=== PATIENT | female | born 1980 ===

== ENCOUNTER 2017-08-15 19:23 | Emergency (ER) | payer SELFPAY ==
[2017-08-15 19:48] VITALS: RESP 18
--- NOTE | 2017-08-15 20:01 | ED PDOC ---
Arrival/HPI - General Chief Complaint: Abdominal Pain Time Seen by Provider: 08/15/17 19:40 Historian: Patient - History of Present Illness Narrative History of Present Illness (Text): 08/15/17 19:56 A 37 year old female, with through , presents to the emergency department complaining of right upper abdominal discomfort for 2-3 hours prior to arrival. Patient is unsure how far along she in her but believes it is approximately 4 months. Patient reports she has been receiving care in a clinic. Patient denies any trauma, fever, chills, nausea, vomiting, diarrhea, urinary symptoms, vaginal discharge, back pain, chest pain, shortness of breath or any other complaints. 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) Symptom Course: Unchanged Context: Home Past Medical History - Provider Review Nursing Documentation Reviewed: Yes - Infectious Disease Hx of Infectious Diseases: None - Cardiac Hx Cardiac Disorders: No - Pulmonary Hx Respiratory Disorders: No - Neurological Hx Neurological Disorder: No - HEENT Hx HEENT Disorder: No - Renal Hx Renal Disorder: No - Endocrine/Metabolic Hx Endocrine Disorders: No - Hematological/Oncological Hx Blood Disorders: No - Integumentary Hx Dermatological Disorder: No - Musculoskeletal/Rheumatological Hx Musculoskeletal Disorders: No - Gastrointestinal Hx Gastrointestinal Disorders: No - Genitourinary/Gynecological Hx Genitourinary Disorders: No - Psychiatric Hx Psychophysiologic Disorder: No Hx Substance Use: No - Surgical History Hx Section: Yes - Anesthesia Hx Anesthesia: Yes Hx Anesthesia Reactions: No Family/Social History - Physician Review Nursing Documentation Reviewed: Yes Family/Social History: No Known Family HX Smoking Status: Never Smoked Hx Alcohol Use: No Hx Substance Use: No Allergies/Home Meds Allergies/Adverse Reactions: Allergies No Known Allergies Allergy (Verified 08/15/17 19:35) Home Medications: Home Meds Medication Instructions Recorded Confirmed Vit No.126/Iron/Folic 1 tab PO DAILY 08/15/17 08/15/17 [Classic Tablet] Review of Systems - Physician Review All systems were reviewed & negative as marked: Yes - Review of Systems Constitutional: absent: Fevers, Night Sweats Respiratory: absent: SOB Cardiovascular: absent: Chest Pain Gastrointestinal: Abdominal Pain (Right upper abdomen). absent: Diarrhea, Nausea, Vomiting Genitourinary Female: absent: Dysuria, Frequency, Hematuria, Vaginal Discharge Musculoskeletal: absent: Back Pain Physical Exam Vital Signs Reviewed: Yes Vital Signs Temp Pulse Resp BP Pulse Ox 08/15/17 19:36 98.9 F 112 H 18 134/64 99 Temperature: Afebrile Blood Pressure: Normal Pulse: Tachycardic Respiratory Rate: Normal Appearance: Positive for: Well-Appearing, Non-Toxic, Comfortable Pain Distress: None Mental Status: Positive for: Alert and Oriented X 3 - Systems Exam Head: Present: Atraumatic, Normocephalic Pupils: Present: PERRL Extroacular Muscles: Present: EOMI Conjunctiva: Present: Normal Mouth: Present: Moist Mucous Membranes Neck: Present: Normal Range of Motion Respiratory/Chest: Present: Clear to Auscultation, Good Air Exchange. No: Respiratory Distress, Accessory Muscle Use Cardiovascular: Present: Regular Rate and Rhythm, Normal S1, S2. No: Murmurs Abdomen: Present: Distention (distension consistent with gestational age), Normal Bowel Sounds. No: Tenderness, Peritoneal Signs Back: Present: Normal Inspection. No: CVA Tenderness Upper Extremity: Present: Normal Inspection, NORMAL PULSES. No: Cyanosis, Edema Lower Extremity: Present: Normal Inspection, NORMAL PULSES. No: Edema Neurological: Present: GCS=15, CN II-XII Intact, Speech Normal Skin: Present: Warm, Dry, Normal Color. No: Rashes Psychiatric: Present: Alert, Oriented x 3, Normal Insight, Normal Concentration Medical Decision Making ED Course and Treatment: 08/15/17 19:56 Impression: A 37 year old female, approximately 4 months , with abdominal pain. Plan: -- Abdomen ultrasound -- age ultrasound -- Labs -- Urinalysis -- Reassess and disposition Progress Notes: Report Date: 08/15/17 21:19 EXAM: US Abdomen Complete Dictated and Authenticated by: Maria Teresa Parada MD Liver: Texture of the liver is mildly heterogeneous. The liver is normal in size.There is hepatopedal flow in the main portal vein. Gallbladder: Gallbladder is distended with no stones, sludge or wall thickening. Common bile duct: Common bile duct measures 3 mm in diameter. Pancreas: Pancreas is partially obscured by bowel gas. Kidneys: Kidneys are unremarkable. Spleen: Spleen is unremarkable. Aorta: Obscured by bowel gas Inferior vena cava: Obscured by bowel gas IMPRESSION: Slightly limited by bowel gas, no gallstones or ductal dilatation; mild fatty infiltration liver Report Date: 08/15/17 21:27 EXAM: US After First Trimester, Transabdominal Dictated and Authenticated by: Maria Teresa Parada MD Fetus: There is a single living intrauterine gestation in breech presentation. There is a heart rate of 149 beats per minute. Placenta: Placenta is posterior. There is no previa. Amniotic fluid: Amnionic fluid volume appears normal Anatomy: Formal anatomic survey was not performed. Fluid is seen in the stomach and bladder. BIOMETRICS Gestational age: 23 weeks 2 days ALTAF: 12/10/17 EFW: 568 g, 58% BPD: 5.75 cm, 23 weeks 4 days HC: 20.95 cm, 20 weeks 0 days AC: 18.38 cm, 23 weeks 1 day FL: 4.05 cm, 23 weeks 1 day MATERNAL: Cervix: Cervix measures approximately 3.7 cm. IMPRESSION: 23 week 2 day single living intrauterine gestation, estimated date of delivery 12/10/17 08/15/17 22:[address] Baldomero Smith, [facility] national account director, who is aware and accepts on transfer to [facility] OB floor for abdominal pain and leukocytosis Based upon the information available at the time of transfer, the medical benefits reasonably expected from the provision of medical treatment at [facility] outweigh the increased risk to the patient for transfer from this facility. I have described the inherent risks and benefits of the transfer to the patient, and patient agrees to transfer. I have spoken to Dr. Baldomero Smith [facility] national account director, who has agreed to accept transfer of the patient and provide further medical treatment at the receiving facility. At the time of transfer, copies of all medical records sent which related to the emergency condition for which the individual presented. These records include observations of signs or symptoms, preliminary clinical impression, treatment provided, results of any completed test and an informed written consent to the transfer. - Lab Interpretations Lab Results: 08/15/17 20:30 08/15/17 20:30 Lab Results 08/15/17 20:30: Beta HCG, Quant [id number] H 08/15/17 20:30: Sodium 139, Potassium 3.8, Chloride 108 H, Carbon Dioxide 17 L, Anion Gap 17, BUN 7, Creatinine 0.4 L, Est GFR ( Amer) > 60, Est GFR (Non -Af Amer) > 60, Random Glucose 151 H, Calcium 9.0, Total Bilirubin 0.2, AST 30, ALT 39, Alkaline Phosphatase 77, Total Protein 6.7, Albumin 3.7, Globulin 3.0, Albumin/Globulin Ratio 1.3, Lipase 43 08/15/17 20:30: Urine Color Yellow, Urine Appearance Sl cloudy, Urine pH 6.5, Ur Specific [place] <= 1.005, Urine Protein Negative, Urine Glucose (UA) 100 H, Urine Ketones Negative, Urine Blood Trace-lysed H, Urine Nitrate Negative, Urine Bilirubin Negative, Urine Urobilinogen 0.2, Ur Leukocyte Esterase Small H , Urine RBC 0 - 2, Urine WBC 2 - 5, Ur Epithelial Cells 6 - 8, Urine Bacteria Mod, Urine HCG, Qual Positive 08/15/17 20:30: WBC 18.3 H, RBC 3.73, Hgb 11.3 L, Hct 32.4 L, MCV 86.9, MCH 30.3 , MCHC 34.9, RDW 13.0, Plt Count 294, MPV 9.6 I have reviewed the lab results: Yes - RAD Interpretation Radiology Orders: 08/15/17 19:48 ABDOMEN COMPLETE [US] Stat 08/15/17 19:49 AGE [US] Stat - Scribe Statement The provider has reviewed the documentation as recorded by the Danii Vides Provider Scribe Attestation: All medical record entries made by the Scribe were at my direction and personally dictated by me. I have reviewed the chart and agree that the record accurately reflects my personal performance of the history, physical exam, medical decision making, and the department course for this patient. I have also personally directed, reviewed, and agree with the discharge instructions and disposition. Disposition/Present on Arrival - Present on Arrival Any Indicators Present on Arrival: No History of DVT/PE: No History of Uncontrolled Diabetes: No Urinary Catheter: No History of Decub. Ulcer: No History Surgical Site Infection Following: None - Disposition Have Diagnosis and Disposition been Completed?: Yes Diagnosis: Abdominal pain during , Leukocytosis Disposition: Transfer [facility] Disposition Time: 22:35 Condition: STABLE Referrals: PCP,NO [Primary Care Provider] - Follow up with primary Forms: zlien (Cameroonian)
[2017-08-15 21:01] LABS: HEMOGLOBIN 11.3 g/dL (12.0-16.0); MEAN CELL VOLUME 86.9 fl (80.0-105.0); MEAN CORPUSCULAR HEMOGLOBIN 30.3 pg (25.0-35.0); MEAN CORPUSCULAR HGB CONC 34.9 g/dl (31.0-37.0); MEAN PLATELET VOLUME 9.6 fl (7.0-11.0); RBC 3.73 10^6/uL (3.5-6.1); WHITE BLOOD COUNT 18.3 10^3/ul (4.5-11.0)
[2017-08-15 21:07] LABS: PH,URINE 6.5 (4.7-8.0); URINE BILIRUBIN NEGATIVE (NEGATIVE); URINE BLOOD TRACE-LYSED (NEGATIVE); URINE GLUCOSE (UA) 100 mg/dL (NEGATIVE); URINE LEUKOCYTE ESTERASE SMALL Leu/uL (NEGATIVE); URINE PROTEIN NEGATIVE mg/dL (<30 mg/dL); URINE UROBILINOGEN 0.2 E.U./dL (<1 E.U./dL)
[2017-08-15 21:08] LABS: URINE APPEARANCE SL CLOUDY (CLEAR); URINE COLOR YELLOW (YELLOW)
[2017-08-15 21:09] LABS: ALB/GLOB RATIO 1.3 (1.1-1.8); ALBUMIN 3.7 g/dL (3.0-4.8); ALT/SGPT 39 U/L (7-56); AST/SGOT 30 U/L (14-36); BLOOD UREA NITROGEN 7 mg/dL (7-21); GFR AFRICAN-AMERICAN > 60; GFR NON-AFRICAN AMERICAN > 60; LIPASE 43 U/L (23-300)
[2017-08-15 21:15] LABS: HCG,QUALITATIVE URINE POSITIVE (NEGATIVE); URINE BACTERIA MOD (NEG); URINE RBC 0 - 2 /hpf (0-2)
--- NOTE | 2017-08-15 21:19 | US ---
EXAM: US Abdomen Complete EXAM DATE/TIME: 08/15/2017 7:48 PM CLINICAL HISTORY: 37 years old, female; Pain; Abdominal pain; Generalized; ; Additional info: Right upper abdominal pain TECHNIQUE: Real-time ultrasound of the abdomen (complete) with image documentation. COMPARISON: There are no prior studies for comparison. FINDINGS: Liver: Texture of the liver is mildly heterogeneous. The liver is normal in size.There is hepatopedal flow in the main portal vein. Gallbladder: Gallbladder is distended with no stones, sludge or wall thickening. Common bile duct: Common bile duct measures 3 mm in diameter. Pancreas: Pancreas is partially obscured by bowel gas. Kidneys: Kidneys are unremarkable. Spleen: Spleen is unremarkable. Aorta: Obscured by bowel gas Inferior vena cava: Obscured by bowel gas IMPRESSION: Slightly limited by bowel gas, no gallstones or ductal dilatation; mild fatty infiltration liver
--- NOTE | 2017-08-15 21:27 | US ---
EXAM: US After First Trimester, Transabdominal EXAM DATE/TIME: 08/15/2017 7:49 PM CLINICAL HISTORY: 37 years old, female; Pain; complicated by abdominal or pelvic pain; Right upper quadrant; Second trimester; LMP: 03/08/17 TECHNIQUE: Real-time transabdominal obstetrical ultrasound of the maternal pelvis and a second or third trimester with image documentation. COMPARISON: US - ABDOMEN COMPLETE 2017-08-15 19:56 FINDINGS: Fetus: There is a single living intrauterine gestation in breech presentation. There is a heart rate of 149 beats per minute. Placenta: Placenta is posterior. There is no previa. Amniotic fluid: Amnionic fluid volume appears normal Anatomy: Formal anatomic survey was not performed. Fluid is seen in the stomach and bladder. BIOMETRICS Gestational age: 23 weeks 2 days ALTAF: 12/10/17 EFW: 568 g, 58% BPD: 5.75 cm, 23 weeks 4 days HC: 20.95 cm, 20 weeks 0 days AC: 18.38 cm, 23 weeks 1 day FL: 4.05 cm, 23 weeks 1 day MATERNAL: Cervix: Cervix measures approximately 3.7 cm. IMPRESSION: 23 week 2 day single living intrauterine gestation, estimated date of delivery 12/10/17
[2017-08-15 23:30] VITALS: BP 125/66; PULSE 101; O2SAT 98
[2017-08-15 23:38] VITALS: TEMP 98
== END 2017-08-15 23:36 | disposition short-term general hospital (02) ==
LOC: ED 19:23
DX: O26.899 Other specified pregnancy related conditions, unspecified trimester (principal); D72.829 Elevated white blood cell count, unspecified; R10.11 Right upper quadrant pain